=== PATIENT | female | born 1985 | race Caucasian/White ===

== ENCOUNTER 2024-10-28 06:17 | Emergency (ER) | payer MEDICARE, OTHER, SELFPAY ==
[2024-10-28 06:18] VITALS: BMI 25.6
[2024-10-28 06:20] VITALS: BP 126/88
--- NOTE | 2024-10-28 06:33 | ED.GENMED ---
History of Present Illness
General
Chief Complaint: Crisis Evaluation
Source: patient, family and police
Exam Limitations: clinical condition
Time Seen by Provider: 10/28/24 06:31
History of Present Illness
History of Present Illness:
This is a 39-year-old female with a history of bipolar disorder who presents with police. Police are following a 302 as she was walking around making suicidal remarks. On my evaluation patient states 'you will just have to shoot me with your gun'.
The patient states she recently lost her father. Patient's aunt arrives later and states that she did recently lose her father and she has been acting out. In fact the patient's mom stated that she could not live with her anymore. The patient
offers no complaints but does want a cigarette and is quite agitated on arrival.
Past History
Past History
ED Past Medical History: Other (Bipolar disorder)
ED Past Surgical History: Appendectomy
Phy Exam
Physical Exam
Physical Exam:
CONSTITUTIONAL Vital signs reviewed, Patient alert and oriented to person, place and time. Agitated, anxious
HEAD atraumatic, normocephalic.
EYES eyelids normal to inspection, Extraocular muscles intact, Conjunctiva normal, Sclera normal.
NECK normal range of motion, Trachea midline, no jugular venous distention.
RESP no respiratory distress
BACK No obvious deformities
UPPER EXTREMITY Gross Range of motion normal, gross motor strength normal
LOWER EXTREMITY Gross range of motion normal, Gross motor strength normal
NEURO Speech normal, No focal motor deficits include, Memory normal, Cranial Nerves intact to screening exam.
SKIN Skin warm, dry, and normal in color.
Psychiatric pressured speech, agitated
Course
Orders/Labs/Results
Orders:
Orders
10/28/24 06:31
Asenapine Sublingual [Saphris] 10 mg SL NOW STA
Nicotine Polacrilex [Nicorette] 2 mg PO Q2HPRN PRN
10/28/24 06:33
ED Special Safety Observation ONCE
Observation level: One to One
10/28/24 06:38
1:1 Observation - Suicide/ Violent Behavior As Directed
Crisis Consult Urgent
Reason for Consult: SI
10/28/24 07:55
Test Result ONCE
10/28/24 08:02
Drug Screen, Urine [Urine Drug Abuse Screen] Urgent
Date Specimen was Collected: 10/28/24
Time Specimen was Collected: 07:55
Fentanyl, Urine Urgent
HCG, Urine Qualitative Screen Urgent
Date Specimen was Collected: 10/28/24
Time Specimen was Collected: 07:55
10/28/24 08:40
Alcohol Urgent
Basic Metabolic Panel Urgent
Complete Blood Count/With Diff Urgent
10/28/24 09:19
Lorazepam [Ativan] 2 mg PO NOW STA
10/28/24 10:00
Nicotine [Nicoderm Transdermal] 14 mg TRANSDERM DAILY
Abnormal Lab Results
10/28/24 10/28/24
08:02 08:40
RBC 3.88 L 10^6/uL
(4.20-5.40)
Hgb 11.5 L g/dL
(12.0-16.0)
Hct 33.1 L %
(37.0-47.0)
Absolute Neuts (auto) 6.6 H 10^3/uL
(1.4-6.5)
Absolute Monos (auto) 0.7 H 10^3/uL
(0.1-0.6)
Neutrophils % 77.6 H %
(42.2-75.2)
Lymphocytes % 13.6 L %
(20.5-51.1)
Carbon Dioxide 20 L mmol/L
(22-30)
BUN 5 L mg/dl
(7-17)
Creatinine 0.5 L mg/dL
(0.6-1.0)
Glucose 117 H mg/dl
(70-99)
U Benzodiazepines Scrn Positive H
(Negative)
10/28/24 08:40
10/28/24 08:40
Vital Signs
Initial and Last Documented VS:
Initial Vital Signs
Pulse Resp BP Pulse Ox
84 18 126/88 99
10/28/24 06:20 10/28/24 06:20 10/28/24 06:20 10/28/24 06:20
Last Documented Vital Signs
Pulse Resp BP Pulse Ox
84 18 126/88 99
10/28/24 06:20 10/28/24 06:20 10/28/24 06:20 10/28/24 06:20
MDM/Problems Addressed
MDM/Problems Addressed:
Acute raina, bipolar disorder
*Pulse Oximetry
Patient hypoxic: no
*Critical Care Note
Total Time (30-74mins, 75-104mins- exclusive of procedures): Not Applicable
Data Reviewed
Source: patient and family
Patient Management
Escalation/DeEscalation of care consider admission/obs:
Patient is expressing suicidal thoughts. She did recently lose her father. Quite anxious on arrival but on reassessment much improved. 302 upheld.
ED Attending Note
-
Portions of this chart may have been created with voice recognition software.� Occasional wrong word or��sound alike� substitutions may have occurred due to the inherent limitations of voice recognition software.
Discharge Plan
Departure
Patient Disposition: Psych Facility
Date of Disposition: 10/28/24
Time of Disposition: 06:34
Discharge Problem:
Acute Raina
Interventions
Interventions:
*Risk Screen - Suicide Last Done: 10/28/24 06:32
*Neglect/Abuse Screening Last Done: 10/28/24 06:32
*ED COVID-19 Vaccine History Last Done: 10/28/24 06:32
ED-Psychological Assessment Last Done: 10/28/24 06:32
Discharge Date and Time
Print Language: AZERI
[2024-10-28] MEDS: SAPHRIS 10 MG SL (06:54)
[2024-10-28] MEDS: NICORETTE 2 MG PO ×4 (06:55→13:51)
[2024-10-28 08:26] LABS: HCG, Urine Qualitative Screen Negative
[2024-10-28 08:51] LABS: % Immature Granulocytes 0.4 % (0-0.5); % Lymphocytes 13.6 % (20.5-51.1); % Monocytes 8.4 % (1.7-9.3); % Neutrophils 77.6 % (42.2-75.2); Absolute Lymphocytes 1.2 10^3/uL (1.2-3.4); Absolute Monocytes 0.7 10^3/uL (0.1-0.6); Absolute Neutrophils 6.6 10^3/uL (1.4-6.5); Hematocrit 33.1 % (37.0-47.0); Hemoglobin 11.5 g/dL (12.0-16.0); Mean Corp Hgb Conc. 34.7 g/dL (33.0-37.0); Mean Corpuscular Hgb 29.6 pg (27.0-31.0); Mean Corpuscular Volume 85.3 fL (81.0-99.0); Mean Platelet Volume 8.7 fL (7.4-10.4); Nucleated Red Blood Cells % 0 %; Platelet Count 351 10^3/uL (130-400); Red Blood Cell Count 3.88 10^6/uL (4.20-5.40); Red Cell Dist. Width 13.9 % (11.5-14.5); White Blood Cell Count 8.5 10^3/uL (4.8-10.8)
[2024-10-28 08:56] LABS: Benzodiazepines Positive (Negative)
[2024-10-28 08:57] LABS: Amphetamines Negative (Negative); Barbiturates Negative (Negative); Buprenorphine Negative (Negative); Cocaine Negative (Negative); Marijuana Negative (Negative); Methadone Negative (Negative); Methamphetamines Negative (Negative); Opiates Negative (Negative); Phencyclidine Negative (Negative); Tricyclic Antidepressants Negative (Negative)
[2024-10-28 09:08] LABS: Blood Urea Nitrogen 5 mg/dl (7-17); Calcium 9.3 mg/dl (8.4-10.2); Carbon Dioxide 20 mmol/L (22-30); Chloride 106 mmol/L (98-107); Estimated Creatinine Clearance 110 ml/min; Glucose 117 mg/dl (70-99); Potassium 4.4 mmol/L (3.5-5.1); Sodium 136 mmol/L (135-145); eGFR > 60.00
[2024-10-28 09:11] LABS: Alcohol None Detected
[2024-10-28] MEDS: ATIVAN 2 MG PO (09:25)
[2024-10-28 10:39] LABS: Fentanyl, Urine Negative (Negative)
[2024-10-28] MEDS: NICODERM TRANSDERMAL 14 MG TRANSDERM (11:23)
== END 2024-10-28 15:30 ==
LOC: EMR 06:17
PROVIDERS: EMERGENCY PHYSICIAN Emergency Medicine
DX: R45.851 Suicidal ideations (principal); R45.1 Restlessness and agitation; F31.9 Bipolar disorder, unspecified; Z63.4 Disappearance and death of family member
CPT/HCPCS: 99285; 80048; 80306; 80307; 81025; 82077; 85025